=== PATIENT | female | born 1970 | race Caucasian/White ===

== ENCOUNTER 2021-06-10 10:07 | Emergency (ER) | payer OTHER, SELFPAY ==
--- NOTE | ~2021-06-10 | CT_ITS ---
EXAMINATION: CT brain wo con DATE: 06/10/2021 11:25 INDICATION: Altered mental state TECHNIQUE: Computed tomography (CT) of the head was performed without intravenous contrast. The mA wa s adjusted according to patient size. Iterative reconstruction technique was employed. Exam dose: 68 1.00 mGy-cm total exam DLP. COMPARISON: None FINDINGS: No intracranial mass lesion or hemorrhage or cerebrovascular accident is detected. No midli ne shift or mass effects. Normal ventricular size. No subdural or epidural hematoma. There is minimal soft tissue thickening in the lower right maxillary sinus and some soft tissue thick ening of the ethmoid air cells bilaterally. The paranasal sinuses and mastoid air cells are otherwise normally developed and aerated. No fracture or bone destruction of the cranial vault. IMPRESSION: No significant intracranial abnormality Reviewed, dictated and finalized at [facility]. Reviewed, dictated and finalized at location B. N RESOURCES RECRUITER
[2021-06-10 10:22] VITALS: BP 157/92; PULSE 86; RESP 20; TEMP 36.4; O2SAT 99
[2021-06-10 11:09] LABS: Basophils Percent Auto 0.5 % (0.2-1.2); Eosinophils Absolute Auto 0.2 K/mm3 (0-0.3); Eosinophils Percent Auto 2.5 % (0-4.4); Hematocrit 40.9 % (37.0-47.0); Hemoglobin 13.9 g/dL (12.0-15.0); Immature Granulocyte Absolute 0.02 K/mm3 (0.00-0.031); Immature Granulocyte Percent A 0.3 % (0-0.5); Lymphocytes Percent Auto 28.5 % (18.3-44.2); Mean Corpuscular Hemoglobin 31.6 pg (26-34); Mean Platelet Volume 8.6 fl (7.4-10.4); Monocytes Absolute Auto 0.5 K/mm3 (0.1-0.6); Monocytes Percent Auto 8.2 % (2.6-8.5); Neutrophils Absolute Auto 3.6 K/mm3 (1.3-6.7); Platelet Count Result 223 k/mm3 (150-375); Red Cell Distribution Width 13.4 % (11.5-14.5)
[2021-06-10 11:20] LABS: Alanine Aminotransferase 27 U/L (4-35); Albumin Level 4.3 g/dL (3.5-5.1); Alkaline Phosphatase 67 U/L (38-126); Anion Gap 7 mmol/L (8-16); Aspartate Amino Transferase 36 U/L (14-36); Bilirubin,Total 0.4 mg/dL (0.2-1.3); Blood Urea Nitrogen 16 mg/dL (7-17); Calcium 9.8 mg/dL (8.4-10.2); Carbon Dioxide 30 mmol/L (22-30); Chloride 96 mmol/L (98-107); Estimated CRCL calculation 83 ml/min; Estimated Glomerular Filt Rate > 60; Glucose 102 mg/dL (65-110); Potassium 4.8 mmol/L (3.4-5.0); Sodium 133 mmol/L (137-145)
[2021-06-10] MEDS: ALPRAZolam (*CRX) 0.5 MG TABLET PO (11:30)
--- NOTE | 2021-06-10 11:32 | PC.NURSE ---
pt alert and oriented x 3. does not remember todays events or driving here. pt now alert and oriented x 3
[2021-06-10 12:49] LABS: Amphetamine Screen Urine Negative (Negative); Barbiturate Screen Urine Negative (Negative); Benzodiazepines Screen Urine Negative (Negative); Cannabinoid Screen Urine Negative (Negative); Cocaine Screen Urine Negative (Negative); Methadone Screen Urine Negative (Negative); Opiate Screen Urine Negative (Negative); Phencyclidine Screen Urine Negative (Negative)
[2021-06-10 13:57] VITALS: BP 106/64; PULSE 58; RESP 16
--- NOTE | 2021-06-10 19:55 | ED.GENADULT ---
HPI - General Adult General Chief complaint: Anxiety Stated complaint: panic attack Time Seen by Provider: 06/10/21 10:28 Source: patient and family () Mode of arrival: ambulatory Limitations: no limitations History of Present Illness HPI narrative: Patient presents to the emergency department with chief complaint of feeling pain in and having some disorientation that began this morning. Patient and her states that the patient was acting normally this morning at approximately 6:30 AM. She went to her daughter school the pain activities. Patient states that she was already shopping but she began to feel panicky and disoriented. She takes her and her told her to come to the emergency department to be evaluated. Patient and her states that she had a seizure history as a child but has not had any seizure activity as an adult. Patient denies any changes to her vision or hearing. She reports that she feels stressed at this time. 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 Patient has not fallen or had any head injury patient denies any changes to her vision or hearing any facial or speech deficit. She reports the patient has not taken her blood pressure medications in 2 days. Patient reports that she is having memory issues at this time and could not recall that she drove herself to the emergency department. Patient reports that she has taken her Celexa today for depression. She denies any SI or HI. Patient denies history of stroke or heart attacks. Patient reports that her mother had a stroke in her late 50s. Patient reports that she also has family history of aneurysms,however her primary care is aware and she has an MRI of her brain every few years. Related Data Home Medications Medication Instructions Recorded Confirmed citalopram 20 mg PO DAILY 06/11/19 06/11/19 losartan 100 mg PO DAILY 06/11/19 06/11/19 Allergies Allergy/AdvReac Type Severity Reaction Status Date / Time NKDA Allergy Unknown Unknown Uncoded 06/10/21 11:33 Review of Systems Review of Systems: CONSTITUTIONAL: Denies fever, chills, or sweats. EYES: Denies visual changes, redness, or discharge. ENT: Denies rhinorrhea, congestion, sore throat, or otalgia. CARDIOVASCULAR: Denies chest pain, palpitations, or edema. RESPIRATORY: Denies cough or dyspnea. GASTROINTESTINAL: Denies abdominal pain, nausea, vomiting, or diarrhea. GENITOURINARY: Denies dysuria or hematuria. SKIN: Denies rash or itching. MUSCULOSKELETAL: Denies back pain, joint pain, or myalgia. NEUROLOGIC: Reports memory issues and feelings of disorientation denies headache, numbness, dizziness, or weakness. PSYCHIATRIC: Reports anxiety and chronic depression. Exam Narrative: GENERAL: Well-appearing, well-nourished, patient in tearful. HEAD: Normocephalic, atraumatic. EYES: PERRLA and EOMI. ENT: Nares clear, no rhinorrhea or epistaxis. Mucous membranes moist. Oropharynx without tonsillar hypertrophy exudate or other lesions. Bilateral TMs pearly fan nonbulging. No hemotympanum. NECK: Supple. No adenopathy or masses. Range of motion intact CHEST: Clear to auscultation. No respiratory distress. No wheezes rales or rhonchi HEART: Regular rate and rhythm. No murmur heard. Normal peripheral pulses. ABDOMEN: Soft, nontender, nondistended, normal active bowel sounds. EXTREMITIES: Normal range of motion. No edema. SKIN: Warm, dry, no rash. NEURO: No focal deficits. Alert and oriented to person and place. Patient gait steady and intact. Patient has normal [id number] test. Negative for pronator drift. Nose to finger test normal evaluate and cerebellar function. Patient speech is clear and appropriate. No visual abnormalities appreciated. Heel toe test normal. PSYCH: Normal mood and affect. Course Vital Signs Vital signs: Vital Signs Temperature 97.5 F
== END 2021-06-10 13:57 | disposition home or self-care (01) ==
PROVIDERS: Physician Assistant; Emergency Provider Emergency Medicine; PCP Internal Medicine
DX: F41.9 Anxiety disorder, unspecified (principal); R41.0 Disorientation, unspecified; F32.9 Major depressive disorder, single episode, unspecified
CPT/HCPCS: 36415; 70450; 80053; 80307; 84443; 85025; 99284; A9270

== ENCOUNTER 2021-08-29 08:11 | Outpatient (CLI) | payer OTHER, SELFPAY ==
--- NOTE | ~2021-08-29 | MM_ITS ---
EXAMINATION: MM screening moraima BI w navin HISTORY: Screening TECHNIQUE: Craniocaudal and mediolateral oblique 3-D tomosynthesis images were obtained and synthetic 2-D images were generated. CAD analysis was submitted and interpreted. COMPARISON: Comparison to multiple prior studies sequentially, with oldest reviewed study dated 04/22. BREAST PARENCHYMAL COMPOSITION: The breasts are almost entirely fatty. FINDINGS: There is no evidence of suspicious mass, calcification, or architectural distortion to sugg est malignancy in either breast. There has been no suspicious interval change. IMPRESSION: 1. No mammographic evidence of malignancy. 2. Recommend routine screening mammography in one year. BI-RADS Category 1: Negative Reviewed, dictated and finalized at location A. E COORDINATOR
== END 2021-08-29 08:12 | disposition home or self-care (01) ==
LOC: ANHIMG 08:17
PROVIDERS: PCP Internal Medicine; Visit Provider Obstetrics & Gynecology
DX: Z12.31 Encounter for screening mammogram for malignant neoplasm of breast (principal)
CPT/HCPCS: 77063; 77067

== ENCOUNTER 2022-08-26 11:04 | Day surgery (SDC) | payer OTHER, SELFPAY ==
[2022-07-24 13:03] VITALS: BMI 35.4
[2022-08-14 10:21] VITALS: BMI 35.5
[2022-08-26 12:02] VITALS: BP 145/100; PULSE 80; RESP 20; TEMP 36.7; O2SAT 98
[2022-08-26] MEDS: LACTATED RINGERS 1,000 ML 150 ML IV CONT (12:03)
--- NOTE | 2022-08-26 12:17 | P.PNAN_ITS ---
Anes - Initial Pre Proc Eval Procedure: Operation Date: 08/26/22 13:00 Proposed Procedures p Screening Colonoscopy - Kirby Campos MD Date/Time: 08/26/22 12:17 Surgeon: Kirby Campos MD Pre Op Diagnosis: Neoplasm Screening Patient Data Age: 52 Gender: F Height: 1.63 m Weight: 90.2 kg Last Vital Signs Temp 36.7 C 08/26/22 12:02 Pulse 80 08/26/22 12:02 Resp 20 08/26/22 12:02 BP 145/100 H 08/26/22 12:02 Pulse Ox 98 08/26/22 12:02 O2 Del Method Room Air 08/26/22 12:02 Allergies Allergy/AdvReac Type Severity Reaction Status Date / Time No Known Allergies Allergy Verified 08/26/22 11:58 Home Medications Medication Instructions Recorded Confirmed Type citalopram 20 mg tablet (Celexa) 20 mg PO DAILY 06/11/19 08/26/22 History losartan 100 mg tablet 100 mg PO DAILY 06/11/19 08/26/22 History Patient hx anesthesia problems: none Family hx anesthesia problems: none Results Review: All pre-operative results and documents have been reviewed as part of the pre- operative evaluation. [facility] Social History Social History Smoking status: Never smoker Alcohol intake: current Drinks per week: 4 Substance use type: does not use Living arrangements: with family Spiritual care concerns: No Anes - Eval Final PreProcedure Day of Procedure 08/26/22 12:17 Patient weight: overweight Heart: regular rate and rhythm Lungs: clear to auscultation Neurological: alert and oriented Last oral intake: >/= 8 hours ASA classification: II Emergent: no Anesthetic plan: proceed Anesthesia type and monitoring: general GIVS and standard monitoring Results Review: All pre-operative results and documents have been reviewed as part of the pre- operative evaluation. Informed Consent: The patient's anesthetic plan and its attendant risks and benefits were discussed with the patient/family/POA. Questions were solicited and answers provided to the satisfaction of the patient/family/POA.
--- NOTE | 2022-08-26 12:50 | PM.HPGS ---
History of Present Illness History of Present Illness Consent: Risks, benefits, and alternatives have been discussed and questions answered. Patient agrees to proceed with procedure. Chief complaint: Neoplasm Screening Narrative: Danyel Hebert is a 52 year old female here for screening colonoscopy, had one about 15 years ago because ibs Review of Systems Constitutional: Constitutional: Denies headache(s) and Denies weakness Eyes: Eyes: Denies blurry vision ENT: Reports Normal hearing present, Denies headache(s) and Denies neck pain Cardiovascular: Cardiovascular: Denies chest pain and Denies dyspnea Respiratory: Respiratory: Denies dyspnea Gastrointestinal: Gastrointestinal: Reports no additional gastrointestinal complaints Genitourinary: Genitourinary: Denies dysuria Musculoskeletal: Musculoskeletal: Denies neck pain Integumentary/Breasts: Skin/Breast: Denies dry skin Neurologic: Reports Normal hearing present, Denies headache(s) and Denies weakness Psychiatric: Psychiatric: Denies anxiety Endocrine: Endocrine: Denies change in body appearance Hematologic/Lymphatic: Hematologic/Lymphatic: Denies easy bleeding Allergic/Immunologic: Allergic/Immunologic: Denies urticaria PMFSH Past Medical History Medical History (Updated 08/26/22 @ 12:51 by Kirby Campos MD) Colon cancer screening Social History Social History Smoking status: Never smoker Alcohol intake: current Drinks per week: 4 Substance use type: does not use Living arrangements: with family Spiritual care concerns: No Meds Home Medications and Allergies Home Medications Medication Instructions Recorded Confirmed Type citalopram 20 mg tablet (Celexa) 20 mg PO DAILY 06/11/19 08/26/22 History losartan 100 mg tablet 100 mg PO DAILY 06/11/19 08/26/22 History Allergies Allergy/AdvReac Type Severity Reaction Status Date / Time No Known Allergies Allergy Verified 08/26/22 11:58 Vital Signs Vital Signs - 24 hr 08/26/22 12:02 Temperature 98.0 F Pulse Rate 80 Respiratory Rate 20 Blood Pressure 145/100 H Pulse Oximetry 98 Oxygen Delivery Room Air Exam Const: General: comfortable and no acute distress HENMT: Face/Nose/Sinus: Normal nares present Eyes: General: appearance normal, both eyes and all related structures Neck: Neck: no JVD Resp: Auscultation: clear to auscultation bilaterally Cardio: Rate: regular rate Rhythm: regular rhythm GI: Inspection: non-distended GI Palp: Yes Soft to palpation Skin: General skin exam: normal color Neuro: General: gait normal Speech: normal speech Extrem: General: normal to inspection Psych: Mental Status: mental status grossly normal Assessment and Plan Assessment and plan (1) Colon cancer screening: Code(s): Z12.11 - Encounter for screening for malignant neoplasm of colon Status: Acute Assessment and Plan: colonoscopy
[2022-08-26 13:12] VITALS: BP 155/84; PULSE 80; RESP 16; O2SAT 100
[2022-08-26 13:22] VITALS: BP 151/77; PULSE 66; RESP 16; O2SAT 100
--- NOTE | 2022-08-26 13:26 | WPDANESPN ---
Anes - Prog Note Post-Op Date/Time: 08/26/22 13:26 Cardiovascular status: normal Respiratory status: normal Airway patency: baseline Mental status: baseline Post-Op hydration status: normal Vital Signs: Last Vital Signs Temp 36.7 C 08/26/22 12:02 Pulse 80 08/26/22 12:02 Resp 20 08/26/22 12:02 BP 145/100 H 08/26/22 12:02 Pulse Ox 98 08/26/22 12:02 O2 Del Method Room Air 08/26/22 12:02 Pain Score (VAS): 0 I/O: Intake & Output 08/25/22 08/26/22 08/26/22 23:59 07:59 15:59 Intake Total 600 Balance 600 Patient Feedback: Patient satisfied with anesthetic care.
[2022-08-26 13:32] VITALS: BP 145/98; PULSE 70; RESP 16; O2SAT 100
== END 2022-08-26 13:46 | disposition home or self-care (01) ==
PROVIDERS: PCP Internal Medicine; Visit Provider Internal Medicine Gastroenterology
PROC: 0DJD8ZZ Inspection of Lower Intestinal Tract, Via Natural or Artificial Opening Endoscopic (ICD-10-PCS; CPT 45378; principal; 2022-08-26 13:00)
DX: Z12.11 Encounter for screening for malignant neoplasm of colon (principal)
CPT/HCPCS: 45378

== ENCOUNTER 2022-10-14 08:15 | Outpatient (CLI) | payer OTHER, SELFPAY ==
--- NOTE | ~2022-10-14 | MM_ITS ---
EXAMINATION: MM screening moraima BI w navin HISTORY: Screening mammogram TECHNIQUE: Craniocaudal and mediolateral oblique 3-D tomosynthesis images were obtained and synthetic 2-D images were generated. CAD analysis was submitted and interpreted. COMPARISON: 08/29/2021, 06/13/2019, 05/19/2017 bilateral screening mammogram examinations BREAST PARENCHYMAL COMPOSITION: The breasts are almost entirely fatty. FINDINGS: There is no evidence of suspicious mass, calcification, or architectural distortion to sugg est malignancy in either breast. There has been no suspicious interval change. IMPRESSION: 1. No mammographic evidence of malignancy. 2. Recommend routine screening mammography in one year. BI-RADS Category 1: Negative Reviewed, dictated and finalized at location A.
== END 2022-10-14 08:16 | disposition home or self-care (01) ==
PROVIDERS: PCP Internal Medicine; Visit Provider Obstetrics & Gynecology
DX: Z12.31 Encounter for screening mammogram for malignant neoplasm of breast (principal)
CPT/HCPCS: 77063; 77067

== ENCOUNTER 2023-11-15 10:43 | Emergency (ER) | payer OTHER, SELFPAY ==
[2023-11-15 10:53] VITALS: BP 146/90; PULSE 59; RESP 16; TEMP 36.3; O2SAT 99
--- NOTE | 2023-11-15 11:10 | ED.SKABFB ---
HPI - Skin/Abscess/Foreign Bdy General Chief complaint: Skin/Abscess/Foreign Body Stated complaint: SKIN IRRATION Time Seen by Provider: 11/15/23 11:10 Source: patient, RN notes reviewed and old records reviewed Mode of arrival: ambulatory Limitations: no limitations History of Present Illness HPI narrative: 53-year-old female presents to the [facility] with induration to the abdomen. States it has been there about a week. Now mildly swollen, warm to touch. 3 x 3 in a half indurated area to the right mid abdomen Onset (ago): week(s) (1) Related Data Home Medications Medication Instructions Recorded Confirmed losartan 100 mg tablet 100 mg PO DAILY 06/11/19 11/15/23 Allergies Allergy/AdvReac Type Severity Reaction Status Date / Time No Known Allergies Allergy Verified 11/15/23 10:59 Review of Systems Review of Systems: All systems reviewed & are unremarkable except as noted in HPI and below Constitutional: Constitutional: Reports no additional constitutional complaints Eyes: Eyes: Reports no additional eye complaints ENT: Reports system reviewed and no additional complaints, except as documented Cardiovascular: Cardiovascular: Reports no additional cardiovascular complaints, Denies chest pain and Denies dyspnea Respiratory: Respiratory: Reports no additional respiratory complaints, Denies chest congestion, Denies cough and Denies dyspnea Gastrointestinal: Gastrointestinal: Reports no additional gastrointestinal complaints, Denies abdominal pain, Denies nausea and Denies vomiting Musculoskeletal: Musculoskeletal: Reports no additional musculoskeletal complaints Integumentary/Breasts: Skin/Breast: Reports as per HPI and Reports erythema Neurologic: Reports system reviewed and no additional complaints, except as documented Psychiatric: Psychiatric: Reports no additional psychiatric complaints Allergic/Immunologic: Allergic/Immunologic: Reports no additional allergic/immunologic complaints [facility] Past Medical History Medical History Arthritis of foot, right, degenerative Colon cancer screening Stress fracture of metatarsal bone of right foot Social History Social History Smoking status: Never smoker Alcohol intake: current Drinks per week: 4 Substance use type: marijuana Living arrangements: with family Gender identity (if verbalized by the patient): Female Spiritual care concerns: No Comments At the time of my signature, I reviewed and agree with the nursing past medical, surgical, social, and family history. There is no relevant family history pertinent to the patient complaint. Exam Const: General: cooperative, healthy appearing, comfortable, no acute distress, well developed, alert and well nourished Nutritional Appearance: well nourished Orientation/consciousness: patient oriented x3 Limitations: no limitations HENMT: Head: normal to inspection Ears: hearing grossly normal bilaterally and external ears normal Face/Nose/Sinus: Normal external nose present, Normal nares present, Normal nasal mucous membranes and turbinates present, normal facial exam and face symmetric Face and sinus: normal facial exam and face symmetric Eyes: General: appearance normal, both eyes and all related structures Alignment and Position: alignment normal Periorbital: periorbital findings normal Pupils: Equal, round and reactive pupils present EOM: EOMs intact bilaterally Neck: Neck: normal visual inspection, full ROM, no lymphadenopathy and no meningeal signs Chest: Chest palpation & inspection: normal inspection of the chest Resp: Effort & Inspection: normal respiratory effort and able to speak in complete sentences Auscultation: clear to auscultation bilaterally, no crackles, no rales, no rhonchi and no wheezes Cardio: Rate: regular rate Rhythm: regular rhythm Skin: General skin exam:
== END 2023-11-15 11:30 | disposition home or self-care (01) ==
PROVIDERS: Emergency Provider Nurse Practitioner; PCP Internal Medicine
DX: L03.311 Cellulitis of abdominal wall (principal); B95.8 Unspecified staphylococcus as the cause of diseases classified elsewhere; F12.90 Cannabis use, unspecified, uncomplicated
CPT/HCPCS: 87070; 87075; 87205; 99213; G0463

== ENCOUNTER 2024-08-30 09:01 | Outpatient (CLI) | payer BC, SELFPAY ==
--- NOTE | ~2024-08-30 | MM_ITS ---
EXAMINATION: MM screening moraima BI w navin HISTORY: Screening mammogram TECHNIQUE: Craniocaudal and mediolateral oblique 3-D tomosynthesis images were obtained and synthetic 2-D images were generated. CAD analysis was submitted and interpreted. COMPARISON: 10/14/2022, 08/29/2021, 06/13/2019 BREAST PARENCHYMAL COMPOSITION:Not Dense. The breasts are almost entirely fatty FINDINGS: No suspicious mass, calcification, or architectural distortion are identified in either emily ast to suggest malignancy. There has been no suspicious interval change. IMPRESSION: No mammographic evidence of malignancy. Recommend routine screening mammography in one year. BI-RADS Category 1: Negative Reviewed, dictated and finalized at location .
--- OUTSIDE RECORDS SUMMARY | 2024-08-30 09:37 | XMS_ITS | Clinical Summary ---
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 Gender Identity Not on file Sexual Orientation Not on file Last Filed Vital Signs Vital Sign Reading Time Taken Comments Blood Pressure - - Pulse - - Temperature - - Respiratory Rate - - Oxygen Saturation - - Inhaled Oxygen Concentration - - Weight 96.6 kg (213 lb) 03/21/2011 1:11 PM CDT Height 165.1 cm (5' 5 ) 03/21/2011 1:11 PM CDT Body Mass Index 35.45 03/21/2011 1:11 PM CDT Plan of Treatment Health Maintenance Due Date Last Done Comments DTAP/TDAP/TD VACCINES (1 - Tdap) 1991 HEPATITIS B VACCINES (1 of 3 - 19+ 3-dose series) 1991 CERVICAL CANCER SCREENING 2002 BREAST CANCER SCREENING 2012 COLORECTAL SCREENING 2017 Colorectal Cancer Screening 2017 FIT-DNA Q 3 years 2017 FIT/FOBT Q 1 year 2017 Flex Sig/CT Colonography Q 5 years 2017 ZOSTER VACCINE (1 of 2) 2022 INFLUENZA VACCINE (#1) 2024 04/17/2022 PNEUMOCOCCAL VACCINE 0-49 YEARS Aged Out No longer eligible based on patient's age to complete this topic Insurance RX [employer] RX Member Subscriber Plan / Payer (Ef fective for All Dates) Name:Cynthializzette Danyel Relation to Subscriber:Self Name:CynthiaWally crockera Payer ID:Not on file Group ID:[id number] Type:RX Commercial Address: [address] Care Teams Air Sealing Technician Relationship Specialty Start Date End Date Shaka Kaur MD [facility] [address] PCP - General 06/11/15
--- OUTSIDE RECORDS SUMMARY | 2024-08-30 09:37 | XMS_ITS | Encounter Summary ---
Author Organization [facility] Address [address] [place] [address] Care Team Providers Care Slicer Machine Operator Name Role Phone Sang Barboza MD Primary Care Provider [phone] Encounter Details Date Type Department Care Team (Late st Contact Info) Description 07/15/2022 MyChart Message Enc [facility] Medical Group Family & Internal Medicine [facility] [address] [place] [address] Sang Barboza MD [address] [place] [id number] Tamela Social History Tobacco Use Types Packs/Day Years Used Date Smoking Tobacco: Never Smokeless Tobacco: Never Alcohol Use Standard Drinks/Week Comments Yes 16.7 (1 standard drink = 0.6 oz pure alcohol) 2-3 drinks weekly AUDIT-C Answer Date Recorded Frequency of Alcohol Consumption Never 06/23/2018 Average Number of Drinks Not on file 019 Frequency of Binge Drinking Not on file 07/2018 PHQ-2 Answer Date Recorded Patient Health Questionnaire-2 Score 0 07/10/2022 Comments No Sex and Gender Information Value Date Recorded Sex Assigned at Female 09/14/2018 8:33 AM CDT Legal Sex Female 7:00 PM CDT Gender Identity Female 09/14/2018 8:33 AM CDT Sexual Orientation Lesbian or Martins 09/14/2018 8: 33 AM CDT COVID-19 Exposure Response Date Recorded In the last 10 days, have yo u been in contact with someone who was confirmed or suspected to have Coronavirus/COVID-19? Unable to assess 07/14/2022 12:13 PM MERCHANDISE DELIVERER documented as of this encounter Progress Notes * Sang Barboza MD - 07/16/2022 12:54 PM CST We cannot add Diabetes to her diagnosis as her labs do not support the diagnosis. HANDISE DELIVERER documented in this encounter Plan of Treatment Not on file documented as of this encounter Visit Diagnoses Not on filedocumented in this encounter Additional Health Concerns Assessment Noted Time PHQ-9 Depression Total Score: 0 07/10/19 23 8:08 AM MERCHANDISE DELIVERER documented as of this encounter Care Teams Slicer Machine Operator Relationship Specialty Start Date End Date Sang Barboza MD [address] [place] [address] PCP - General 02/22/16 documented as of this encounter
--- OUTSIDE RECORDS SUMMARY | 2024-08-30 09:37 | XMS_ITS | Encounter Summary ---
Author Organization [facility] Address [address] [place] [address] Care Team Providers Care Potato Seed Cutter Name Role Phone Sang Barboza MD Primary Care Provider [phone] Encounter Details Date Type Department Care Team (Late st Contact Info) Description 12/10/2023 MyChart Message Enc [facility] Medical Group Family & Internal Medicine [facility] [address] [place] [address] Sang Barboza MD [address] [place] [address] Ozempic Social History Tobacco Use Types Packs/Day Years Used Date Smoking Tobacco: Never Passive Smoke Exposure: Never Smokeless Tobacco: Never Alcohol Use Standard Drinks/Week Comments Yes 16.7 (1 standard drink = 0.6 oz pure alcohol) 2-3 drinks weekly AUDIT-C Answer Date Recorded Frequency of Alcohol Consumption Never 06/23/2018 Average Number of Drinks Not on file 019 Frequency of Binge Drinking Not on file 07/2018 PHQ-2 Answer Date Recorded Patient Health Questionnaire-2 Score 0 12/01/2023 Comments No Sex and Gender Information Value Date Recorded Sex Assigned at Female 09/14/2018 8:33 AM CDT Legal Sex Female 7:00 PM CDT Gender Identity Female 09/14/2018 8:33 AM CDT Sexual Orientation Lesbian or Martins 09/14/2018 8: 33 AM CDT documented as of this encounter Progress Notes * Sang Barboza MD - 12/10/2023 4:17 PM CDT For pre-diabetes we will need to have a HgA1C done, she has not had one since 2020 documented in this encounter Plan of Treatment Not on file documented as of this encounter Visit Diagnoses Not on filedocumented in this encounter Additional Health Concerns Assessment Noted Time PHQ-9 Depression Total Score: 0 07/10/19 23 8:08 AM PETROLEUM INSPECTOR SUPERVISOR documented as of this encounter Care Teams Potato Seed Cutter Relationship Specialty Start Date End Date Sang Barboza MD [address] [place] [address] PCP - General 02/22/16 documented as of this encounter
--- OUTSIDE RECORDS SUMMARY | 2024-08-30 09:37 | XMS_ITS | Encounter Summary ---
Author Organization [facility] Address [address] [place] [address] Care Team Providers Care Roving Department Supervisor Name Role Phone Sang Barboza MD Primary Care Provider [phone] Encounter Details Date Type Department Care Team (Late st Contact Info) Description 10/14/2022 MyChart Message Enc [facility] Medical Group Family & Internal Medicine [facility] [address] [place] [address] Sang Barboza MD [facility] [place] [address] Chiropractor Social History Tobacco Use Types Packs/Day Years [...] Progress Notes * Sang Barboza MD - 10/15/2022 1:05 PM CDT Okay for referral. Not sure if it is covered by insurance. documented in this encounter Plan of Treatment Not on file documented as of this encounter Visit Diagnoses Not on filedocumented in this encounter Additional Health Concerns Assessment Noted Time PHQ-9 Depression Total Score: 0 07/10/19 23 8:08 AM SHANK MAKER documented as of this encounter Care Teams Roving Department Supervisor Relationship Specialty Start Date End Date Sang Barboza MD [address] [place] [address] PCP - General 02/22/16 documented as of this encounter
--- OUTSIDE RECORDS SUMMARY | 2024-08-30 09:37 | XMS_ITS | Clinical Summary ---
Author Organization [facility] Address [address] [place] [address] Care Team Providers Care Connection Worker Name Role Phone Unavailable Primary Care Provider Unavailabl e Immunizations Immunization Administration Dates Next Due Covid-19, Mrna, Lnp-s, Pf, 30 Mcg/0.3 Ml Dose (P fizer) 04/02/2021 Social History Tobacco Use Types Packs/Day Years Used Date Smoking Tobacco: Never Assessed Comments Unknown Sex and Gender Information Value Date Recorded Sex Assigned at Not on file Legal Sex Female 10:06 AM CDT Gender Identity Not on file Sexual Orientation Not on file Plan of Treatment Health Maintenance Due Date Last Done Comments Hepatitis C Virus (HCV) Screening 1972 TdaP Immunization 1972 Hepatitis B Immunization (1 of 3 - 19+ 3-dose series) 1991 Pap Smear 1993 Cervical Cancer Screening (CCS) 2002 HPV/Cotest 2002 Colonoscopy 2017 Colorectal Cancer Screening 2017 Cologuard 2022 Immunochemical Fecal Occult Blood 2022 Mammogram 2022 Pneumococcal Immunization (5 0+ years) (1 of 1 - PCV) 2022 Zoster Immunization (1 of 2) 2022 Influenza Immunization (#1) 2024 SARS-COV-2 Immunization (2 - season) 2024 04/02/2021 Respiratory Syncytial Virus (RSV) Immunization (Adult) (1 - 1-dose 75+ series) 2047 Meningococcal Immunization (ACWY) Aged Out No longer eligible based on patient's age to complete this topic Pneumococcal Immunization Combined Aged Out No longer eligible based on patient's age to complete this topic Rotavirus Immunization Aged Out No lo nger eligible based on patient's age to complete this topic
--- OUTSIDE RECORDS SUMMARY | 2024-08-30 09:37 | XMS_ITS | Encounter Summary ---
Author Organization [facility] Address [address] [place] [address] Care Team Providers Care Roundhouse Firer/Fireman Name Role Phone Sang Barboza MD Primary Care Provider [phone] Encounter Details Date Type Department Care Team (Late st Contact Info) Description 06/11/2021 MyChart Message Enc [facility] Medical Group Family & Internal Medicine [facility] [address] [place] [address] Sang Barboza MD [facility]1 [place], [place] [id number] [facility] ER visit 1-2 Social History Tobacco Use Types Packs/Day Years Used Date Smoking Tobacco: Never Smokeless Tobacco: Never Alcohol Use Standard Drinks/Week Comments Yes 0 (1 standard drink = 0.6 oz pur e alcohol) 2-3 drinks weekly AUDIT-C Answer Date Recorded Frequency of Alcohol Consumption Never 06/23/2018 Average Number of Drinks Not on file 019 Frequency of Binge Drinking Not on file 07/2018 PHQ-2 Answer Date Recorded PHQ-2 Score - If the patient scores above 3, please move on to questions 3-9 0 10/10/2020 Comments No Sex and Gender Information Value Date Recorded Sex Assigned at Female 09/14/2018 8:33 AM CDT Legal Sex Female 7:00 PM CDT Gender Identity Female 09/14/2018 8:33 AM CDT Sexual Orientation Lesbian or Martins 09/14/2018 8: 33 AM CDT COVID-19 Exposure Response Date Recorded In the last month, have you been in contact with someone who was confirmed or suspected to have Coronavirus / COVID-19? No / Unsure 06/12/2021 9:56 AM MANAGEMENT NURSE RN documented as of this encounter Plan of Treatment Not on file documented as of this encounter Visit Diagnoses Not on filedocumented in this encounter Additional Health Concerns Assessment Noted Time PHQ-9 Depression Total Score: 1 10/11/19 21 8:27 AM CDT documented as of this encounter Care Teams Roundhouse Firer/Fireman Relationship Specialty Start Date End Date Sang Barboza MD [address] [place] [address] PCP - General 02/22/16 documented as of this encounter
--- OUTSIDE RECORDS SUMMARY | 2024-08-30 09:37 | XMS_ITS | Clinical Summary ---
Author Organization [facility] Address [address] [place] [address] Care Team Providers Care Bacteriology Professor Name Role Phone Jagdeep Cai DO Primary Care Provider [phone] Source Comments [facility],non-owned Affiliates and Associated Physician Practices is amultiple site organization consisting of ambulatory clinics and hospital sitesin [place], [place], [place] and [place]. This disclosure is being madepursuant to the Care Everywhere program and may not contain all information available regarding this patient. Last updated 18.[facility] Social History Tobacco Use Types Packs/Day Years Used Date Smoking Tobacco: Never Assessed Sex and Gender Information Value Date Recorded Sex Assigned at Not on file Gender Identity Not on file Sexual Orientation Not on file Plan of Treatment Health Maintenance Due Date Last Done Comments COLOGUARD (AGES 45-75) - COL ON CA SCREENING 1972 COLON MONITORING 1972 COLONOSCOPY - COLON CA SCREENING 1972 CT COLONOGRAPHY - COLON CA SCREENING 1972 Colorectal Cancer Screening 1972 FIT - COLON CA SCREENING 1972 FLEX SIG - COLON CA SCREENING 1972 LIPID TESTING 1972 MAMMOGRAM 1972 PAP SMEAR 1972 HIV SCREENING 1987 HEPATITIS C SCREENING 07/17/1990 DTAP/TDAP/TD VACCINES (1 - Tdap) 1991 HEPATITIS B VACCINE (1 of 3 - 19+ 3-dose series) 1991 PNEUMOCOCCAL VACCINE 50+ (1 of 1 - PCV) 2022 ZOSTER VACCINE (1 of 2) 2022 COVID-19 VACCINE (2023-2 5 season) 2024 INFLUENZA VACCINE (#1) 2024 DEPRESSION SCREENING 06/22/2024 HIB VACCINE Aged Out No longer eligi ble based on patient's age to complete this topic HPV VACCINE Aged Out No longer eligi ble based on patient's age to complete this topic MENINGOCOCCAL (Group B) VACCINE Aged Out No longer eligible based on patient's age to complete this topic MENINGOCOCCAL VACCINE Aged Out No prerna peggy eligible based on patient's age to complete this topic PNEUMOCOCCAL VACCINE Aged Out No long er eligible based on patient's age to complete this topic Care Teams Bacteriology Professor Relationship Specialty Start Date End Date Jagdeep Cai DO PCP - General Internal Medicine 02/26/17
--- OUTSIDE RECORDS SUMMARY | 2024-08-30 09:37 | XMS_ITS | Referral Summary ---
Author Organization [facility] Address [facility] [place] [address] Care Team Providers Care Research Biostatistician Name Role Phone Jagdeep Cai DO Primary Care Provider [phone] Source Comments [facility] Affiliates and Associated Physician Practices is amultiple site organization consisting of ambulatory clinics and hospital sitesin [place], [place], [place] and [place]. This disclosure is being madepursuant to the Care Everywhere program and may not contain all information available regarding this patient. Last updated 18.[facility] Social History Tobacco Use Types Packs/Day Years Used Date Smoking Tobacco: Never Assessed Sex and Gender Information Value Date Recorded Sex Assigned at Not on file Gender Identity Not on file Sexual Orientation Not on file Plan of Treatment Not on file Administered Medications Care Teams Research Biostatistician Relationship Specialty Start Date End Date Jagdeep Cai, PCP - General Internal Medicine 02/26/17
--- OUTSIDE RECORDS SUMMARY | 2024-08-30 09:37 | XMS_ITS | Encounter Summary ---
Author Organization [facility] Address [address] [place] [address] Care Team Providers Care Grades 1 Thru 5 Teacher Name Role Phone Sang Barboza MD Primary Care Provider Encounter Details Date Type Department Care Team (Late st Contact Info) Description 04/17/2021 MyChart Message Enc [facility] Medical Group Family & Internal Medicine [facility] [address] [place] [address] Sang Barboza MD [facility] [place], [place] [id number] RE: Medication Questions Social History Tobacco Use Types Packs/Day Years [...] as of this encounter Progress Notes * Twin Carlson DO - 04/17/2021 10:44 AM CDT It looks like they were expected for next June; that's what I'd recommend. Usually need labs every year. Will also send to PCP to ensure he is in agreement since he ordered them. documented in this encounter Plan of Treatment Not on file documented as of this encounter Visit Diagnoses Not on filedocumented in this encounter Additional Health Concerns Assessment Noted Time PHQ-9 Depression Total Score: 1 10/11/19 8:27 AM CDT documented as of this encounter Care Teams Grades 1 Thru 5 Teacher Relationship Specialty Start Date End Date Sang Barboza MD [address] [place] [address] PCP - General 02/22/16 documented as of this encounter
--- OUTSIDE RECORDS SUMMARY | 2024-08-30 09:37 | XMS_ITS | Encounter Summary ---
Author Organization [facility] Address [address] [place] [address] Care Team Providers Care Performance Reporter Name Role Phone Sang Barboza MD Primary Care Provider [phone] Encounter Details Date Type Department Care Team (Late st Contact Info) Description 06/11/2021 MyChart Message Enc [facility] Medical Group Family & Internal Medicine [facility] [address] [place] [address] Sang Barboza MD [address] [place] [phone] ER visit 2-2 Social History Tobacco Use Types Packs/Day Years [...] COVID-19? No / Unsure 06/12/2021 9:56 AM ASSOCIATE PROFESSOR OF FORESTRY documented as of this encounter Plan of Treatment Not on file documented as of this encounter Visit Diagnoses Not on filedocumented in this encounter Additional Health Concerns Assessment Noted Time PHQ-9 Depression Total Score: 1 10/11/19 8:27 AM CDT documented as of this encounter Care Teams Performance Reporter Relationship Specialty Start Date End Date Sang Barboza MD [address] [place] [address] PCP - General 02/22/16 documented as of this encounter
--- OUTSIDE RECORDS SUMMARY | 2024-08-30 09:37 | XMS_ITS | Encounter Summary ---
Author Organization [facility] Address [address] [place] [address] Care Team Providers Care Center Medical Director Name Role Phone SuniJagdeep sotelo Prudencio NEWELL Primary Care Provider Encounter Details Date Type Department Care Team (Late st Contact Info) Description 03/05/2023 Lab Requisition [facility] - DermPath Lab [address] [place] [address] Carmela Whitney MD [address] [facility] [address] [place] [address] Social History Tobacco Use Types Packs/Day Years Used Date Smoking Tobacco: Never Assessed Sex and Gender Information Value Date Recorded Sex Assigned at Not on file Gender Identity Not on file Sexual Orientation Not on file documented as of this encounter Plan of Treatment Not on file documented as of this encounter Procedures Procedure Name Priority Date/Time Associated Diagnosis Comments DERMATOPATHOLOGY Routine 03/05/2023 8:58 AM CDT documented in this encounter Results * DERMATOPATHOLOGY (03/05/2023 8:58 AM CDT) Case Report Dermatopathology Report Case: [id number] Authorizing Provider: Carmela Whitney MD Collected: 03/05/2023 08:58 AM Ordering Location: [facility] DermPath Lab Received: 03/06/2023 08:04 AM Pathologist: Bonita Toro MD Specimen: Skin, nose 1:30 PM CDT DERMATOPATHOLOGY LABORATORY Final Diagnosis Specimen A. SKIN, nose: ANGIOFIBROMA (FIBROUS PAPULE) (D21.0) (see microscopic description) 09/18/202 3 1:30 PM CDT DERMATOPATHOLOGY LABORATORY Clinical History R/O BCC 1:30 PM CDT DERMATOPATHOLOGY LABORATORY Gross Description Specimen A: Received is one formalin filled container labeled with the patient's name and designated nose. The specimen consists of a shave biopsy measuring 3x2x1 mm. Jar 0. 1:30 PM CDT DERMATOPATHOLOGY LABORATORY Microscopic Description Specimen A. SKIN, nose: This dome-shaped lesion contains dilated blood vessels, coarse collagen bundles, and stellate fibroblasts. Additional deeper sections were obtained and reviewed. 3 1:30 PM CDT DERMATOPATHOLOGY LABORATORY Disclaimer An external and internal positive and negative controls are appropriate for the histochemical, immunohistochemical and immunofluorescence stain(s) in this case (if any), except where stated explicitly. The performance characteristics of the stain(s) cited in this report were developed and its performance characteristic determined by the Dermatopathology Laboratory at [facility], directed by Dr. Lico Szymanski. These tests need not be, and therefore are not, approved by the [place] Food and Drug Administration. The tests are used for clinical purposes. Billing Codes Specimen Charges Stain Charges 71347 1 3 1:30 PM CDT DERMATOPATHOLOGY LABORATORY Embedded Images 3 1:30 PM CDT DERMATOPATHOLOGY LABORATORY Pathology/Cytolo gy TISSUE SPECIMEN FROM SKIN / Unknown 03/05/2023 8:58 AM CDT 03/06/2023 8:04 AM CDT Carmela Whitney MD LAB - PATHOLOGY/CYTO LOGY ORDERABLES DERMATOPATHOLOGY LABORATORY [facility] - Department of Dermatology [facility] Medicine [address] [place] [address], [address] [phone] documented in this encounter Visit Diagnoses Not on filedocumented in this encounter Care Teams Center Medical Director Relationship Specialty Start Date End Date Jagdeep Cai DO PCP - General Internal Medicine 02/26/17 documented as of this encounter
--- OUTSIDE RECORDS SUMMARY | 2024-08-30 09:37 | XMS_ITS | Patient Health Summary ---
Author Organization [facility] Address [address] [place] [address] Care Team Providers Care Ceramic Design Engineer Name Role Phone Trell Jagdeep Prudencio DO Primary Care Provider [phone] Note from [facility],non-owned Affiliates and Associated Physician Practices is amultiple site organization consisting of ambulatory clinics and hospital sitesin [place], [place], [place] and [place]. This disclosure is being madepursuant to the Care Everywhere program and may not contain all information available regarding this patient. Last updated 18.[facility] Social History Tobacco Use Types Packs/Day Years Used Date Smoking Tobacco: Never Assessed Sex and Gender Information Value Date Recorded Sex Assigned at Not on file Gender Identity Not on file Sexual Orientation Not on file Procedures * DERMATOPATHOLOGY(Performed 03/05/2023) Results * DERMATOPATHOLOGY (03/05/2023 8:58 AM CDT) Case Report Dermatopathology Report Case: [id number] Authorizing Provider: Carmela Whitney MD Collected: 03/05/2023 08:58 AM Ordering Location: [facility] DermPath Lab Received: 03/06/2023 08:04 AM Pathologist: Bonita Toro MD Specimen: Skin, nose 3 1:30 PM CDT DERMATOPATHOLOGY LABORATORY Final Diagnosis Specimen A. SKIN, nose: ANGIOFIBROMA (FIBROUS PAPULE) (D21.0) (see microscopic description) 3 1:30 PM CDT DERMATOPATHOLOGY LABORATORY Clinical History R/O BCC 3 1:30 PM CDT DERMATOPATHOLOGY LABORATORY Gross Description Specimen A: Received is one formalin filled container labeled with the patient's name and designated nose. The specimen consists of a shave biopsy measuring 3x2x1 mm. Jar 0. 3 1:30 PM CDT DERMATOPATHOLOGY LABORATORY Microscopic Description [...] characteristic determined by the Dermatopathology Laboratory at [facility], directed by Dr. Lico Szymanski. These tests need not be, and therefore are not, approved by the [place] Food and Drug Administration. The tests are used for clinical purposes. Billing Codes Specimen Charges Stain Charges 02507 1 3 1:30 PM CDT DERMATOPATHOLOGY LABORATORY Embedded Images 3 1:30 PM CDT DERMATOPATHOLOGY LABORATORY Pathology/Cytolo gy TISSUE SPECIMEN FROM SKIN / Unknown 03/05/2023 8:58 AM CDT 03/06/2023 8:04 AM CDT Carmela Whitney MD LAB - PATHOLOGY/CYTO LOGY ORDERABLES DERMATOPATHOLOGY LABORATORY [facility] - Department of Dermatology [facility] Specialized Medicine [address] [place] [address], [address] [phone] Care Teams Ceramic Design Engineer Relationship Specialty Start Date End Date Jagdeep Cai DO PCP - General Internal Medicine 02/26/17
--- OUTSIDE RECORDS SUMMARY | 2024-08-30 09:37 | XMS_ITS | Encounter Summary ---
Author Organization [facility] Address [address] [place] [address] Care Team Providers Care Electrical Prospecting Operator Name Role Phone Sang Barboza MD Primary Care Provider [phone] Encounter Details Date Type Department Care Team (Late st Contact Info) Description 02/10/2022 MyChart Message Enc [facility] Medical Group Family & Internal Medicine [facility] [address] [place] [address] Sang Barboza MD [address] [place] [phone] Labs Social History Tobacco Use Types Packs/Day Years [...] 3, please move on to questions 3-9 1 02/13/2022 Comments No Sex and Gender Information Value [...] was confirmed or suspected to have Coronavirus/COVID-19? No / Unsure 02/13/2022 7:52 AM CDT documented as of this encounter Progress Notes * Sang Barboza MD - 02/12/2022 3:31 PM CDT If needed we will do them at her visit. documented in this encounter Plan of Treatment Not on file documented as of this encounter Visit Diagnoses Not on filedocumented in this encounter Additional Health Concerns Assessment Noted Time PHQ-9 Depression Total Score: 1 10/11/19 21 8:27 AM CDT documented as of this encounter Care Teams Electrical Prospecting Operator Relationship Specialty Start Date End Date Sang Barboza MD [address] [place] [address] PCP - General 02/22/16 documented as of this encounter
--- OUTSIDE RECORDS SUMMARY | 2024-08-30 09:37 | XMS_ITS | Encounter Summary ---
Author Organization [facility] Address [address] [place] [address] Care Team Providers Care Boiler Plant Operator Name Role Phone Sang Barboza MD Primary Care Provider [phone] Encounter Details Date Type Department Care Team (Late st Contact Info) Description 06/18/[address] [facility] Medical Group Family & Internal Medicine [facility] [address] [place] [address] Sang Barboza MD [facility] [place] [address] Ozempic Social History Tobacco Use Types Packs/Day [...] Progress Notes * Sang Barboza MD - 06/18/2022 3:43 PM CST She is a candidate, she would need an appointment to discuss and start. BENCH OPERATOR HELPER documented in this encounter Plan of Treatment Not on file documented as of this encounter Visit Diagnoses Not on filedocumented in this encounter Additional Health Concerns Assessment Noted Time PHQ-9 Depression Total Score: 3 02/14/20 22 8:53 AM CDT documented as of this encounter Care Teams Boiler Plant Operator Relationship Specialty Start Date End Date Sang Barboza MD [address] [place] [address] PCP - General 02/22/16 documented as of this encounter
--- OUTSIDE RECORDS SUMMARY | 2024-08-30 09:37 | XMS_ITS | Clinical Summary ---
Author Organization [facility] Address [facility] [place] [address] Care Team Providers Care Outside Plant Cable Engineer Name Role Phone Sang Barboza MD Primary Care Provider [phone] Allergies No known active allergies Medications Multiple Vitamins-Mineral s (MULTIVITAMIN ADULT OR) Take 1 tablet by mouth daily. Active [place]-3 Fatty Acids (FISH OIL) 1200 MG Cap Take 1 capsule by mouth daily. Active LORazepam 0.5 MG tabletIndication s:Acute anxiety Take 1 tablet (0.5 mg total) by mouth every 8 (eight) hours as needed for Anxiety. 30 tablet 2 Active tirzepatide (MOUNJARO) 15 MG/0.5ML injection Inject 15 mg every week by subcutaneous route. 3 Active losartan (COZAAR) 100 MG tabletIndication s:Benign essential hypertension take one tablet by mouth daily 30 tablet 11 4 Active fluticasone propionate (FLONASE) 50 MCG/ACT nasal sprayIndications :Non-recurrent acute serous otitis media of both ears 1 spray by Nasal route daily. 16 g 4 Active benzonatate (TESSALON PERLES) 100 MG capsuleIndicatio ns:Acute cough Take 1 capsule (100 mg total) by mouth every 6 (six) hours as needed for Cough. 30 capsule 4 Active citalopram (CELEXA) 20 MG tabletIndication s:Moderate episode of recurrent major depressive disorder (CMS/HCC) Take 1 tablet (20 mg total) by mouth daily. 90 tablet 1 4 Active Active Problems Problem Noted Date Diagnosed Date Acute anxiety 06/12/2021 Altered mental state 06/12/2021 Abnormal glucose 02/26/2016 Headache 02/26/2016 Depression 08/21/2015 Benign essential hypertension 08/02/2014 Hyperlipidemia 08/02/2014 Vitamin D deficiency 08/17/2013 Overview (09/04/2020): Vitamin D deficiency Resolved Problems Problem Noted Date Diagnosed Date Resolved Date Screening-pulmonary TB 05/11/201803/02 GERD (gastroesophageal reflux disease) 12/16/2016 04/29/2021 Knee pain, bilateral 08/02/2014 019 Immunizations Name Administration Dates Next Due Fluzone 6 Months+ Quad (0.5 mL Prefilled Syringe) 04/09/2020,03/23/2019 Influenza (Generic) 04/04/2015 Influenza Adult (Generic) 04/08/2024,,03/14/2021, 019,03/22/2018,03/20/2016 PFIZER COVID-19 (ORIGINAL FORMULATION, PURPLE CAP) mRNA, LNP-S, PF, 30 MCG/0.3 ML DOSE 08/31/2020 Shingrix 11/04/2023,09/05/2023 Tdap (Adacel) 07/10/2022 Family History Medical History Relation Comments Alcohol Abuse Brother Alcohol Abuse Father Cancer Father prostate Hypertension Father Subarachnoidal hemorrhage Father Diabetes Maternal Grandmother Unspecified if maternal or paternal Relation Status Comments Brother Father Maternal Grandmother Social History Tobacco Use Types Packs/Day Years Used Date Smoking Tobacco: Never Passive Smoke Exposure: Never Smokeless Tobacco: Never Alcohol Use Standard Drinks/Week Comments Yes 16.7 (1 standard drink = 0.6 oz pure alcohol) 2-3 drinks weekly AUDIT-C Answer Date Recorded Frequency of Alcohol Consumption Never 06/23/2018 Average Number of Drinks Not on file Frequency of Binge Drinking Not on file 07/2018 PHQ-2 Answer Date Recorded Patient Health Questionnaire-2 Score 0 12/01/2023 Comments No Sex and Gender Information Value Date Recorded Sex Assigned at Female 09/14/2018 8:33 AM CDT Legal Sex Female 7:00 PM CDT Gender Identity Female 09/14/2018 8:33 AM CDT Sexual Orientation Lesbian or Martins 09/14/2018 8: 33 AM CDT Last Filed Vital Signs Vital Sign Reading Time Taken Comments Blood Pressure 141/88 12/01/2023 10:48 AM CDT Pulse 64 12/01/2023 10:45 AM CDT Temperature 36.6 C (97.8 F) 12/01/2023 10:45 AM CDT Respiratory Rate 20 12/01/2023 10:45 AM CDT Oxygen Saturation 98% 12/01/2023 10:45 AM CDT Inhaled Oxygen Concentration - - Weight 88 kg (194 lb) 12/01/2023 10:45 AM CDT Height 165.1 cm (5' 5 ) 12/01/2023 10:45 AM CDT Body Mass Index 32.28 12/01/2023 10:45 AM CDT Plan of Treatment Health Maintenance Due Date Last Done Comments Cervical Cancer Screening Pap Smear (Age 30 to 64) Every 3 Years 1972 Hepatitis C 1990 Hepatitis B Vaccines (1 of 3 - 19+ 3-dose series) 1991 Cervical Cancer Screening Pap with HPV Testing (Age 30 to 64) Every 5 Years 2002 Cervical Cancer Screening with HPV 2002 COVID-19 Vaccine ( season) 2024 04/17/2022, 04/02/2021, 09/25/2020, Additional history exists PHQ-2 (Physician [place]) 06/22/2024 12/01/2023 Annual Physical 08/26/2024 08/27/2023 Mammogram Screening 10/14/2024 10/14/2022, 08/29/2021, 06/13/2019 DTaP, Tdap and Td Vaccines (2 - Td or Tdap) 07/10/2032 07/10/2022 Colorectal Cancer Screening Colonoscopy (10 Years) 08/26/2032 08/26/2022 Zoster Vaccines Completed 11/04/2023, 09/05/2023 Influenza Adult Completed 04/08/2024, 03/23, 03/14/2021, Additional history exists Meningococcal B Vaccine Aged Out No l onger eligible based on patient's age to complete this topic Meningococcal Vaccine Aged Out No prerna peggy eligible based on patient's age to complete this topic Pneumococcal Vaccine: Pediatrics (0 to 5 Years) and At-Risk Patients (6 to 64 Years) Aged Out No longer eligible based on patient's age to complete this topic RSV Immunizations Under 20 Months Aged Out No longer eligible based on patient's age to complete this topic Procedures Procedure Name Priority Date/Time Associated Diagnosis Comments MAMMOGRAM GENERIC (SCAN ORDER) 10/14/2022 COLONOSCOPY GENERIC (SCAN ORDER) 08/26/2022 from Last 3 Months or Most Recently Relevant to Health Maintenance Results * MAMMOGRAM GENERIC (10/14/2022) Anatomical Region Laterality Modality Other 10/14/2022 us [facility] Scanned SCANNING Final Resu lt * COLONOSCOPY GENERIC (SCAN ORDER) (08/26/2022) 08/26/2022 [facility] Scanned SCANNING Final Resu lt from Last 3 Months or Most Recently Relevant to Health Maintenance Insurance Care Teams Outside Plant Cable Engineer Relationship Specialty Start Date End Date Sang Barboza MD [address] [place] [address] PCP - General 02/22/16
== END 2024-08-30 09:02 | disposition home or self-care (01) ==
PROVIDERS: PCP Internal Medicine; Visit Provider Obstetrics & Gynecology
DX: Z12.31 Encounter for screening mammogram for malignant neoplasm of breast (principal)
CPT/HCPCS: 77063; 77067

== ENCOUNTER 2025-04-24 15:15 | Outpatient (CLI) | payer OTHER, SELFPAY ==
--- OUTSIDE RECORDS SUMMARY | 2025-04-24 15:35 | XMS_ITS | Encounter Summary ---
Author Organization [facility] Address [address] [facility] [place] [address] Care Team Providers Care Cable Television Technician Name Role Phone Jagdeep Cai Primary Care Provider Encounter Details Date Type Department Care Team (Late st Contact Info) Description 03/05/2023 Lab Requisition [facility] - DermPath Lab [address] [facility] [place] [address] Carmela Whitney MD [address] [facility] [address] [place] [address] Social History Tobacco Use Types Packs/Day Years Used Date Smoking Tobacco: Never Assessed Comments Unknown Sex and Gender Information Value Date Recorded Sex Assigned at Not on file Legal Sex Female 8:46 AM CDT Gender Identity Not on file Sexual Orientation Not on file documented as of this encounter Plan of Treatment Not on file documented as of this encounter Procedures Procedure Name Priority Date/Time Associated Diagnosis Comments DERMATOPATHOLOGY Routine 03/05/2023 8:58 AM CDT documented in this encounter Results * DERMATOPATHOLOGY (03/05/2023 8:58 AM CDT) Case Report Dermatopathology Report Case: [id number] Authorizing Provider: Carmela Whitney MD Collected: 03/05/2023 08:58 AM Ordering Location: [facility] DermPath Lab Received: 03/06/2023 08:04 AM Pathologist: Bonita Toro MD Specimen: Skin, nose 1:30 PM CDT DERMATOPATHOLOGY LABORATORY Final Diagnosis Specimen A. SKIN, nose: ANGIOFIBROMA (FIBROUS PAPULE) (D21.0) (see microscopic description) 3 1:30 PM CDT DERMATOPATHOLOGY LABORATORY at 1330 CDT Clinical History R/O BCC 1:30 PM CDT [...] Additional deeper sections were obtained and reviewed. 1:30 PM CDT DERMATOPATHOLOGY LABORATORY Disclaimer An external and internal positive and negative controls are appropriate for the histochemical, immunohistochemical and immunofluorescence stain(s) in this case (if any), except where stated explicitly. The performance characteristics of the stain(s) cited in this report were developed and its performance characteristic determined by the Dermatopathology Laboratory at [facility], directed by Dr. Lico Szymanski. These tests need not be, and therefore are not, approved by the [place] Food and Drug Administration. The tests are used for clinical purposes. Billing Codes Specimen Charges Stain Charges 85250 1 3 1:30 PM CDT DERMATOPATHOLOGY LABORATORY Embedded Images 1:30 PM CDT DERMATOPATHOLOGY LABORATORY Pathology/Cytolo gy TISSUE SPECIMEN FROM SKIN / Unknown 03/05/2023 8:58 AM CDT 03/06/2023 8:04 AM CDT us Carmela Whitney MD LAB - PATHOLOGY/CYTOLOGY ORD ERABLES Final Result DERMATOPATHOLOGY LABORATORY [facility] - Department of Dermatology [address], [address] [phone] documented in this encounter Visit Diagnoses Not on filedocumented in this encounter Care Teams Cable Television Technician Relationship Specialty Start Date End Date Jagdeep Cai DO PCP - General Internal Medicine 02/26/17 documented as of this encounter
--- OUTSIDE RECORDS SUMMARY | 2025-04-24 15:36 | XMS_ITS | Clinical Summary ---
Author Organization [facility] Address [address] [place] [address] Care Team Providers Care Tractor Expert Name Role Phone Unavailable Primary Care Provider [...] Cervical Cancer Screening (CCS) 2002 HPV/Cotest 2002 Cologuard 2017 Colonoscopy 2017 Colorectal Cancer Screening 2017 Immunochemical Fecal Occult Blood 2017 Pneumococcal Immunization (5 0+ years) (1 of 1 - PCV) 2022 Zoster Immunization (1 of 2) 2022 Influenza Immunization (#1) 2025 SARS-COV-2 Immunization (2 - season) 2025 04/02/2021 Respiratory Syncytial Virus (RSV) Immunization (Adult) (1 - 1-dose 75+ series) 2047 Human Papillomavirus (HPV) Immunization Aged Out No longer eligible b ased on patient's age to complete this topic Meningococcal Immunization (ACWY) Aged Out No longer eligible based on patient's age to complete this topic Rotavirus Immunization Aged Out No lo nger eligible based on patient's age to complete this topic
--- OUTSIDE RECORDS SUMMARY | 2025-04-24 15:36 | XMS_ITS | Clinical Summary ---
Author Organization [facility] Address [address] [place] [address] Care Team Providers Care Opener Name Role Phone Jagdeep Cai DO Primary Care Provider Source Comments [facility],non-owned Affiliates and Associated Physician Practices is amultiple site organization consisting of ambulatory clinics and hospital sitesin [place], [place], [place] and [place]. This disclosure is being madepursuant to the Care Everywhere program and may not contain all information available regarding this patient. Last updated 18.[facility] [employer] Social History Tobacco Use Types Packs/Day Years [...] SCREENING 1972 LIPID TESTING 1972 MAMMOGRAM 1972 HIV SCREENING 1987 HEPATITIS C SCREENING 07/17/1990 DTAP/TDAP/TD VACCINES (1 - Tdap) 1991 HEPATITIS B VACCINE (1 of 3 - 19+ 3-dose series) 1991 PAP SMEAR 1993 PNEUMOCOCCAL VACCINE 50+ (1 of 1 - PCV) 2022 ZOSTER VACCINE (1 of 2) 2022 DEPRESSION SCREENING 06/22/2024 COVID-19 VACCINE (1 - 2023-2 5 season) 2025 INFLUENZA VACCINE (#1) 2025 HIB VACCINE Aged Out No longer eligi ble based on patient's age to complete this topic HPV VACCINE Aged Out No longer eligi ble based on patient's age to complete this topic MENINGOCOCCAL (Group B) VACC INE SHARED DECISION-MAKING Aged Out No longer eligibl e based on patient's age to complete this topic MENINGOCOCCAL GROUPS A/C/Y/W VACCINE Aged Out No longer eligible b ased on patient's age to complete this topic Insurance [facility] Care Teams Opener Relationship Specialty Start Date End Date Jagdeep Cai DO PCP - General Internal Medicine 02/26/17
--- OUTSIDE RECORDS SUMMARY | 2025-04-24 15:36 | XMS_ITS | Data Portability ---
Author Organization [facility] [place] Address [address] [place] [address] Care Team Providers Care Field Placement Director Name Role Phone ADAN HALL Primary Care Provider Assessment No assessment recorded. Plan of Treatment Reminders Order Date Submit Date Provider Last Modified By Organization Details Last Modified Time Details Appointments None recorded. Lab None recorded. Referral None recorded. Procedures None recorded. Surgeries None recorded. Imaging None recorded. Medication Orders Mounjaro 15 mg/0.5 mL subcutaneou s pen injector 2022 023 Formerly [facility], [address] [place] [address], [id number], 3 10:19:46 Mounjaro 15 mg/0.5 mL subcutaneou s pen injector 2022 023 [facility], [address] [place] [address], [id number], 3 13:08:24 Mounjaro 15 mg/0.5 mL subcutaneou s pen injector 2022 023 [facility], [address] [place] [address], [id number], 3 15:11:22 Patient TargetsNo targets recorded. Patient InstructionsNo instructions recorded. Reason for Referral None Reported. Procedures Surgical History Date Name Laterality Status Provider Name and Address Organization Details Recorded Time 12/21/19 23 completed Sima Munguia [facility] 04/03/2023 12:51:10 08/07/19 17 endometrial biopsy completed Yuin Stewarttz [facility] 02/09/2023 14:57:38 07/23/19 11 Endometrial Ablation completed Yuni Kaur [facility] 02/09/2023 14:57:23 Endometrial Ablation completed Sima Nilda [facility] 04/03/2023 12:51:20 Imaging Results None recorded. Procedure Notes None recorded. Medical Equipment None Reported. Allergies No known drug allergies Medications Name Sig Start Date Stop Date Status Note LastModified by Organization Details LastModified Time losartan 50 mg tablet take 1 tablet by oral route every day 2014 active Prescrib ed Elsewher e: Yes Loca tion: [facility] odify By: [email or web address] trick En counter DateTime : 05/01/20 15 08:30:00 AM Not Available Not Available Not Available tramadol 50 mg tablet take 1 tablet by oral route every 6 hours as needed 2014 active Prescrib ed Elsewher e: Yes Loca tion: [facility] odify By: [email or web address] trick En counter DateTime : 05/01/20 15 08:30:00 AM Not Available Not Available Not Available citalopra m 20 mg tablet take 1 tablet by oral route every day active Not Available Not Available No t Available simvastat in 20 mg tablet take 1 tablet by oral route every day in the evening 08/07 completed Prescrib ed Elsewher e: Yes Loca tion: [facility] odify By: [email or web address] Lozano ncounter DateTime : 05/01/20 15 08:30:00 AM Not Available Not Available Not Available losartan 100 mg tablet active Not Available Not Available Not Available Mounjaro 15 mg/0.5 mL subcutane ous pen injector Inject 15 mg every week by subcutan eous route. 2022 active Not Available Not Available Not Avai lable Vitals Date Recorded Body height Body mass index (BMI) Body weight Systolic And Diastolic Provider Name and Address Organization Details Last Updated DateTime 02/09/2023 162.56 cm 36.2 kg/m2 42073.99 g 107/72 mm[Hg] Yuni Kaur [facility] 02/09/2023 14:45:09 Date Recorded Body height Body mass index (BMI) Body weight Systolic And Diastolic Provider Name and Address Organization Details Last Updated DateTime 03/12/2023 162.56 cm 36 kg/m2 11910.4 g 155/100 mm[Hg] [facility] 03/12/2023 09:46:49 Date Recorded Body height Body mass index (BMI) Body weight Systolic And Diastolic Provider Name and Address Organization Details Last Updated DateTime 04/03/2023 162.56 cm 36.6 kg/m2 54516.17 g 152/95 mm[Hg] [facility] 04/03/2023 12:50:55 Date Recorded Body height Body mass index (BMI) Body weight Systolic And Diastolic Provider Name and Address Organization Details Last Updated DateTime 06/04/2023 162.56 cm 36.2 kg/m2 36867.99 g 112/75 mm[Hg] [facility] 06/04/2023 10:02:15 Social History Question Answer Notes LastModified by Organizat ion Details LastModified Time Tobacco Smoking Status Never Smoker [email or web address] 06/04/2023 09:44:46 How Many Years Have You Consumed Alcohol? 30 Information not available 04/03/2023 Are You Blind Or Do You Have Difficulty Seeing? No [email or web address] Information n ot available 02/09/2023 What Is Your Level Of Caffeine Consumption? Occasional [email or web address] Information not available 02/09/2023 How Much Tobacco Do You Chew? None Information not available 04/03/2023 In The 14 Days Before Symptom Onset, Have You Had Close Contact With A Laboratory-confirm ed COVID-19 While That Case Was Ill? No [email or web address] Information n ot available 02/09/2023 In The 14 Days Before Symptom Onset, Have You Had Close Contact With A Person Who Is Under Investigation For COVID-19 While That Person Was Ill? No [email or web address] Information not available 02/09/2023 Have You Been To An Area Known To Be High Risk For COVID-19? No [email or web address] Information not available 02/09/2023 Are You Deaf Or Do You Have Serious Difficulty Hearing? No Information not available 02/09/2023 What Type Of Diet Are You Following? CARBOHYDRATE Information n ot available 04/03/2023 What Is The Highest Grade Or Level Of School You Have Completed Or The Highest Degree You Have Received? [id number] Information not available 04/03/2023 Are There Any Guns Present In Your Home? No Information not available 04/03/2023 Have You Ever Been Counseled For Unhealthy Alcohol Use? No [email or web address] Information not available 06/04/2023 Do You Use Protection During Sex? No Information not available 04/03/2023 Do You Use Your Seat Belt Or Car Seat Routinely? Yes Information not available 02/09/2023 Do You Have Smoke And Carbon Monoxide Detectors In Your Home? Yes [email or web address] Information not available 02/09/2023 How Much Tobacco Do You Smoke? No Information not available 04/03/2023 Do You Use Sunscreen Routinely? Yes [email or web address] Information not available 02/09/2023 Has Tobacco Cessation Counseling Been Provided? No [email or web address] Information not available 06/04/2023 Have You Used IV Drugs? No Information not available 04/03/2023 Do You Have Difficulty Walking Or Climbing Stairs? No [email or web address] Information not available 06/04/2023 Sex: Unknown Functional Status Question Answer Note LastModified by Organizat ion Details LastModified Time Do you use any illicit or recreational drugs? Yes martin hines [email or web address] Information not available 02/09/2023 Do you or have you ever used any other forms of tobacco or nicotine? No Information not available 06/04/2023 What is your level of alcohol consumption? Occasional Information not available 02/09/2023 Are you able to walk independently without assistance or assistive devices? YESWOREST [email or web address] Information not available 02/09/2023 Are you able to care for yourself independently? Yes [email or web address] Information not available 06/04/2023 What is your occupation? None Information not available 04/03/2023 Do you have difficulty dressing, bathing, grooming, or toileting? No Information not available 06/04/2023 What is your exercise level? Occasional Information not available 04/03/2023 Mental Status Question Answer Note LastModified by Organization D etails LastModified Time Do you feel stressed (tense, restless, nervous, or anxious, or unable to sleep at night)? [id number] [email or web address] Information not available 02/09/2023 Family History Relationship Description Onset Age of this Age Resolved Age Notes LastModified by Organization Details LastModified Time Father Hypercholest erolemia [email or web address] Not available 02/09 14:55:21 Mother Blood coagulation disorder [email or web address] Not available 02/09 14:55:33 Paternal Grandmother Diabetes mellitus [email or web address] Not available 02/09 14:55:46 Maternal Grandmother Malignant neoplasm of lung [email or web address] Not available 02/09 14:56:02 Maternal Grandfather Malignant neoplasm of lung Not available 02/09 14:56:02 Medical History Condition Response Allergies (Food, seasonal, environmental ) N Other N Breast Cancer N Drug/Latex Allergies/Reactions N Blood Transfusion N Dermatologic Disorders N Lung Disease N Defects or Inherited Disease N Breast Problem N Gestational Diabetes N Hematologic disorders N Anesthesia Complications N History of STI N Deep Vein Thrombosis N Polycystic ovary syndrome N Anxiety Disorder Y Autoimmune disease N Arthritis N Infertility N Polyps N Acid Reflux (GERD) N History of abnormal pap N Cancer N Stroke N Varicosities N Neurologic/Epilepsy Y Endometriosis N High Cholesterol Y Headaches N Fibromyalgia N Kidney Disease N Heart Problems N Kidney or Bladder Problems N Thyroid Problems N GI Problems N Eating Disorder N Anemia N Art (IVF or FET) N Psychiatric Illness N Ovarian Cancer N Diabetes N Pulmonary (TB, Asthma) N Hepatitis/Liver Disease N No Past Medical History N Eczema N Urinary Tract Infection N Abuse/Domestic Violence N Asthma N Trauma/Violence N Depression/ depression Y Heart Disease N Pre-Eclampsia N Hypertension Y Osteoporosis N Thrombophilias N Gynecological History Statement/Question Response Abnormal Pap N Date of Last Mammogram Date of LMP 01/11/2011 On BCP's at Conception? N N STIs/STDs N HPV Vaccine N Current Control Method Ablation Sexually Active? Y Date of DEXA bone scan Date of Last Pap Smear Sexual Problems? N LMP Approximate 12/20/2022 N Obstetrics History GPAL:G 0 P 0 0 0 0 Type Value Living 0 Total 0 Past Encounters Encounter ID Performer Location Encounter Start Date Encounter Closed Date Diagnosis/Indication Diagnosis SNOMED-CT Code Diagnosis ICD10 Code Diagnosis IMO Codes Diagnosis Note [id number] Nico Mariano MD [place] [address] [address] 02/09/2023 14:10:02 02/10/2023 14:42:38 Obesity 915642488 E66.9 This patient is a 52-year-ol d female who presents for weight management . We took a very thorough history. We talked about some of her goals. Talked about some of her challenges . We talked about some of her previous efforts in weight loss and her activity level. We talked about limitation s for activity. Talked about energy consumptio n energy expenditur e. She was given recommenda tions and some of these areas. We talked about the importance of resistance training and cardiovasc ular exercise. We talked about her medical history in its relationsh ip to excess body weight. We talked about treatment options. We talked about the evaluation that is appropriat e for beginning weight management . We talked about her diet and our dietitian. We agreed to a dietitian consult. We agreed to a sleep study. We agreed to metabolic testing. We performed body compositio n testing today. We reviewed those results and talked about their significan ce. We spent over 1 hour together. More than 50% was counseling . We agreed to come together in 2 weeks and initiate treatment. To start the new G LP 1 agonist, we discussed side effects, dosing, [id number] Nico Mariano MD [place] [address] [address] 03/12/2023 09:37:04 03/12/2023 10:30:15 Obesity 445165806 E66.9 52-year-ol d female who presents for follow-up on weight management . She started mounjar0. She started 2.5 mg. She has not noticed too much in the way efficacy. She has noticed some improve appetite. We will increase dose to 5 mg q.week. She will continue exercise calorie management . She will follow-up 1 month. [id number] Nico Mariano MD [place] [address] [address] 04/03/2023 12:00:30 04/06/2023 11:19:09 Obesity 571676910 E66.9 52-year-ol d female who presents for follow-up on obesity. Patient would like to increase the dose of her medication . She is on the new GLP 1 agonist. She is drinking alcohol in excess in the evenings. She is not been able to lose weight thus far. She is going to start counting calories now. She is going to get more active. The medication was prescribed . We spent over 20 minutes face-to-fa ce. More than 50% was counseling . [id number] Nico Mariano MD [place] [address] [address] 06/04/2023 09:43:46 06/04/2023 15:39:09 Obesity [id number] E66.9 52-year-ol d female who presents for follow-up on obesity. Patient would like to increase the dose of her medication . She is on the new GLP 1 agonist. She is drinking alcohol in excess in the evenings. She is not been able to lose weight thus far. She is going to start counting calories now. She is going to get more active. The medication was prescribed . We spent over 20 minutes face-to-fa ce. More than 50% was counseling . Health Concerns Section Related Observation LastModified by Organization Detai ls LastModified Time None Recorded Concern Status LastModified by Organization Details LastModified Time None Recorded Advance Directives Directive None Recorded Payers Insurance Date Sequence Insurance Name Policy Number Policy Hollis Covered Member ID Hollis Member ID Guarantor Name 06/01/2023 1 [facility] [id number] [facility] [id number] Danyel Hebert Notes Date Note Type Note Provider Name and Address Organization Details Recorded Time 02/09/2023 text/html a 52-year-old female who presents for weight management. Patient is affected by her body weight. She feels like she cannot participate in physical activities. She began having trouble with her weight in her teens. She has not had her highest weight but is near it. She got down to 155 lb 5 years ago. That is 65 lb less than she is now. She has used weight watchers for weight loss. She has never used any medications. She does not eat breakfast often and does drink vodka. She denies any binge eating night eating. There may be some binge component to her over eating Her food triggers of boredom and eating out. She craves sugar, chocolate, high fat dishes and large portions. Exercise history- walking 3 times a week. She walks for about an hour and 10 minutes. Sleep-seems good, 8 hours at least, feels rested past medical history-high cholesterol, anxiety, depression past surgical history-ablation social history -does have drinks regularly. Nico Mariano MD [address], [place], [address], [facility] 02/10/2023 16:19:27 03/12/2023 text/html 52-year-old female who presents for follow-up on weight management. She started mounjar0. She started 2.5 mg. She has not noticed too much in the way efficacy. She has noticed some improve appetite. We will increase dose to 5 mg q.week. She will continue exercise calorie management. She will follow-up 1 month. Nico Mariano MD [address], [place], [address], [facility] 03/12/2023 10:25:44 04/03/2023 text/html 52-year-old female who presents for follow-up on obesity. Patient would like to increase the dose of her medication. She is on the new GLP 1 agonist. She is drinking alcohol in excess in the evenings. She is not been able to lose weight thus far. She is going to start counting calories now. She is going to get more active. The medication was prescribed. We spent over 20 minutes [id number]. More than 50% was counseling. Nico Mariano MD [address], [place], [address], [facility] 04/03/2023 17:26:54 06/04/2023 text/html 52-year-old female who presents for follow-up on obesity. Patient would like to increase the dose of her medication. She is on the new GLP 1 agonist. She is drinking alcohol in excess in the evenings. She is not been able to lose weight thus far. She is going to start counting calories now. She is going to get more active. The medication was prescribed. We spent over 20 minutes [id number]. More than 50% was counseling. Nico Mariano MD [address], [place], [address], [facility] 06/04/2023 15:38:37 OBGyn Episode No OBEpisode recorded.
--- OUTSIDE RECORDS SUMMARY | 2025-04-24 15:36 | XMS_ITS | Clinical Summary ---
Author Organization [facility] Address [address] [place] [address] Phone Care Team Providers Care Sprayer Hand Name Role Phone Shaka Kaur MD Primary Care Provider [phone] Immunizations Immunization Administration Dates Next Due INFLUENZA VACCINE QUADRIVALENT 6 MOS UP PF IM Social History Tobacco Use Types Packs/Day Years Used Date Smoking Tobacco: Never Assessed Comments Unknown Sex and Gender Information Value Date Recorded Sex Assigned at Not on file Legal Sex Female 6:04 AM SUPERVISOR Gender Identity Not on file Sexual Orientation Not on file Last Filed Vital Signs Vital Sign Reading Time Taken Comments Blood Pressure - - Pulse - - Temperature - - Respiratory Rate - - Oxygen Saturation - - Inhaled Oxygen Concentration - - Weight 96.6 kg (213 lb) 03/21/2011 1:11 PM CDT Height 165.1 cm (5' 5) 03/21/2011 1:11 PM CDT Body Mass Index 35.45 03/21/2011 1:11 PM CDT Plan of Treatment Health Maintenance Due Date Last Done Comments DTAP/TDAP/TD VACCINES (1 - Tdap) 1991 HEPATITIS B VACCINES (1 of 3 - 19+ 3-dose series) 06/24 HPV/Cotest (21-29) 1993 CERVICAL CANCER SCREENING 2002 HPV/Cotest (30-65) 2002 PAP SMEAR 2002 BREAST CANCER SCREENING 2012 COLORECTAL SCREENING 2017 Colorectal Cancer Screening 2017 FIT-DNA Q 3 years 2017 FIT/FOBT Q 1 year 2017 Flex Sig/CT Colonography Q 5 years 2017 ZOSTER VACCINE (1 of 2) 2022 INFLUENZA VACCINE (#1) 2025 04/17/2022 Insurance RX [employer] Member Subscriber Plan / Payer (Ef fective for All Dates) Name:Danyel Hebert Relation to Subscriber:Self Name:Danyel Hebert Payer ID:Not on file Group ID:[id number] Type:RX Commercial Address: [address] Care Teams Sprayer Hand Relationship Specialty Start Date End Date Shaka Kaur MD [address] [place] [id number] PCP - General 06/11/15
[2025-04-24 15:57] LABS: Hematocrit 38.2 % (37.0-47.0); Hemoglobin 12.9 g/dL (12.0-15.0); Mean Corpuscular HGB Conc 33.8 g/dl (32-36); Mean Corpuscular Hemoglobin 31.7 pg (26-34); Mean Corpuscular Volume 93.9 fl (80-100); Platelet Count Result 266 k/mm3 (150-375); Red Blood Count 4.07 M/mm3 (4.2-5.4); White Blood Count 7.0 K/mm3 (4.5-10.0)
[2025-04-24 16:14] LABS: Albumin Level 4.3 g/dL (3.5-5.1)
[2025-04-24 16:18] LABS: Iron 88 ug/dL (37-170)
[2025-04-24 16:24] LABS: Prealbumin 23.0 mg/dL (17.6-36.0)
[2025-04-28 19:08] LABS: Vit. B1, Whole Blood 117.9 nmol/L (66.5-200.0)
== END 2025-04-24 15:16 | disposition home or self-care (01) ==
PROVIDERS: PCP Internal Medicine; Visit Provider Surgery Plastic and Reconstructive Surgery
DX: R63.4 Abnormal weight loss (principal)
CPT/HCPCS: 36415; 82040; 83540; 84134; 84425; 85027